=== PATIENT | female | born 1975 | race Caucasian/White ===

== ENCOUNTER 2020-06-25 11:43 | Emergency (ER) | payer SELFPAY ==
[2020-06-25 11:48] VITALS: BP 115/63
[2020-06-25] MEDS ORDERED: MORPHINE SULFATE 10 MG/ML INJ IM ONE (11:53)
--- NOTE | 2020-06-25 11:53 | ER Document Report ---
ED Medical Screen (RME) - General Chief Complaint: Pelvic Pain Stated Complaint: PELVIC PAIN Time Seen by Provider: 06/25/20 11:46 Mode of Arrival: Ambulatory Information source: Patient Notes: 44-year-old female presents to ED for complaint of right pelvic pain. She states she has had a history of a right ovarian torsion a month ago and had to have surgery. She does have a history of PCOS. She is also has a history of anemia and gastric bypass. States she does not use alcohol tobacco or drugs. I have greeted and performed a rapid initial assessment of this patient. A comprehensive ED assessment and evaluation of the patient, analysis of test results and completion of medical decision making process will be conducted by an additional ED providers. - Related Data Allergies/Adverse Reactions: acetaminophen [From Percocet] Allergy (Verified 06/25/20 11:50) Hives oxycodone [From Percocet] Allergy (Verified 06/25/20 11:50) Hives Physical Exam - Vital signs Vitals: Temp Pulse Resp BP Pulse Ox 98.2 F 86 12 115/63 98 06/25/20 11:47 06/25/20 11:47 06/25/20 11:47 06/25/20 11:47 06/25/20 11:47 Course - Vital Signs Vital signs: Temp Pulse Resp BP Pulse Ox 98.2 F 86 12 115/63 98 06/25/20 11:47 06/25/20 11:47 06/25/20 11:47 06/25/20 11:47 06/25/20 11:47
[2020-06-25] MEDS ORDERED: DIPHENHYDRAMINE HCL 50 MG/ML VIAL IM ONE (11:54)
[2020-06-25 12:31] LABS: ABSOLUTE EOSINOPHILS # (AUTO) 0.1 10^3/uL (0.0-0.6); ABSOLUTE MONOCYTES (AUTO) 0.2 10^3/uL (0.1-1.4); ABSOLUTE NEUT (AUTO) 2.4 10^3/uL (1.7-8.2); BASOPHILS % (AUTO) 1.1 % (0-2); EOSINOPHILS % (AUTO) 3.1 % (0-6); HEMATOCRIT 37.1 % (36.0-47.0); HEMOGLOBIN 12.2 g/dL (12.0-15.5); LYMPHOCYTES % (AUTO) 26.7 % (13-45); MEAN CORPUSCULAR HEMOGLOBIN 27.6 pg (27.0-33.4); MEAN CORPUSCULAR HGB CONC 32.9 g/dL (32.0-36.0); MEAN CORPUSCULAR VOLUME 84 fl (80-97); MONOCYTES % (AUTO) 5.6 % (3-13); PLATELET COUNT 334 10^3/uL (150-450); RED BLOOD COUNT 4.43 10^6/uL (3.72-5.28); RED CELL DISTRIBUTION WIDTH 14.7 % (11.5-14.0); SEGMENTED NEUTROPHILS % (AUTO) 63.5 % (42-78); TOTAL CELLS COUNTED % (AUTO) 100 %; WHITE BLOOD COUNT 3.8 10^3/uL (4.0-10.5)
[2020-06-25 12:33] LABS: APPEARANCE,URINE CLOUDY; BILIRUBIN,URINE NEGATIVE (NEGATIVE); COLOR,URINE YELLOW; GLUCOSE, URINE NEGATIVE (NEGATIVE); KETONES,URINE NEGATIVE (NEGATIVE); LEUKOCYTE ESTERASE,URINE LARGE (NEGATIVE); NITRITE,URINE NEGATIVE (NEGATIVE); PROTEIN,URINE NEGATIVE (NEGATIVE); URINE SPECIFIC GRAVITY 1.019
[2020-06-25] MEDS ORDERED: FENTANYL CITRATE INJ/PF 100 MCG/2 ML AMPUL IV ONE ×2 (12:33→14:10)
--- NOTE | 2020-06-25 12:39 | ER Document Report ---
ED GI/ - General Chief Complaint: Pelvic Pain Stated Complaint: PELVIC PAIN Time Seen by Provider: 06/25/20 11:46 Mode of Arrival: Ambulatory Notes: HPI: 44-year-old female who presents today awakening with severe pain to the right lower quadrant. She describes it as "sharp", constant, with no aggravating relieving factors. No radiation. Nausea and vomiting x1. No dysuria or diarrhea. Patient just had a right ovarian torsion diagnosed and treated in [place] 5 weeks ago. She states that they just "untwisted it" and did not perform an oophorectomy. She states that this is the same location and pain characteristics that she had at that time. ROS: See HPI All other review of systems reviewed and otherwise negative Reviewed vital signs and nursing note as charted by RN. PHYSICAL EXAM: CONSTITUTIONAL: Alert and oriented and responds appropriately to questions. Patient does appear to be in distress HEAD: Normocephalic; atraumatic NECK: Supple without meningismus; non-tender; no cervical lymphadenopathy, no masses CARD: Regular rate and rhythm; no murmurs; symmetric distal pulses RESP: Normal chest excursion without splinting or tachypnea; breath sounds clear and equal bilaterally ABD/GI: Normal bowel sounds; old laparoscopy scars present; non-distended; soft, tender to palpation to the right lower quadrant with no rebound or guarding. No palpable masses BACK: The back appears normal and is non-tender to palpation EXT: Normal ROM in all joints; non-tender to palpation; no edema SKIN: No acute lesions noted NEURO: CN 2-12 intact; 5/5 bilateral upper and lower extremity strength with sensation intact to light touch PSYCH: The patient's mood and manner are appropriate. Grooming and personal hygiene are appropriate. - Related Data Allergies/Adverse Reactions: acetaminophen [From Percocet] Allergy (Verified 06/25/20 11:50) Hives oxycodone [From Percocet] Allergy (Verified 06/25/20 11:50) Hives Past Medical History - General Information source: Patient - Social History Smoking Status: Never Smoker Family History: Reviewed & Not Pertinent Physical Exam - Vital signs Vitals: Temp Pulse Resp BP Pulse Ox 98.2 F 86 12 115/63 98 06/25/20 11:47 06/25/20 11:47 06/25/20 11:47 06/25/20 11:47 06/25/20 11:47 Course - Re-evaluation Re-evalutation: 06/25/20 12:38 Given the above history and physical with the concern of possibly torsion, I did call down to radiology to help expedite the ultrasound. They state that they currently only have 1 tech working at this time and do not know the timeframe to receive the stat ultrasound. I then did call the [employer] on-call Dr. Calles and have explained the situation. She states she will most likely take a bedside ultrasound to evaluate. I have provided fentanyl. Awaiting urine test. Patient denies missing any menstrual periods. She is 44 years of age. The differential does include possibly acute appendicitis or other intra- abdominal pathology, but given the recent surgery and history I am concerned mostly about an ovarian torsion at this time. 06/25/20 13:55 [employer] was at bedside. Ultrasound was at bedside. They both performed a transvaginal ultrasound together. They could not find the ovaries. They have asked perform a CT scan and will reevaluate. Patient's pain is much more controlled. 06/25/20 15:[address] scan as recorded. I called and spoke again to the INSPECT[employer] who is very polite. She states she will come down to see the patient again. Patient obviously has had recent laparoscopic surgery given the scars. History of ovarian torsion. Specially cystectomy as well now speaking further with the patient. Given his history not able to visualize the ovaries, I believe INSPECTOR [employer] will admit the patient for possible serial exams and possible repeat l aparoscopy. - Vital Signs Vital signs: Temp Pulse Resp BP Pulse Ox 98.2 F 86 12 115/63 98 06/25/20 11:47 06/25/20 11:47 06/25/20 11:47 06/25/20 11:47 06/25/20 11:47 - Laboratory Result Diagrams: 06/25/20 12:00 06/25/20 12:00 Laboratory results interpreted by me: 06/25/20 06/25/20 06/25/20 12:00 12:00 12:00 WBC 3.8 L RDW 14.7 H Carbon Dioxide 31 H Urine Urobilinogen 2.0 H Ur Leukocyte Esterase LARGE H Discharge - Discharge Clinical Impression: RLQ abdominal pain Condition: Fair Disposition: ADMITTED OBSERVATION Admitting Provider: Masha Calles Unit Admitted: Labor and Delivery
[2020-06-25 12:44] LABS: ALBUMIN 4.6 g/dL (3.5-5.0); ALKALINE PHOSPHATASE 94 U/L (38-126); ANION GAP 6 (5-19); ASPARTATE AMINO TRANSFERASE 23 U/L (14-36); BILIRUBIN,DIRECT 0.3 mg/dL (0.0-0.4); BILIRUBIN,TOTAL 0.6 mg/dL (0.2-1.3); BLOOD UREA NITROGEN 10 mg/dL (7-20); CALCIUM 9.7 mg/dL (8.4-10.2); CARBON DIOXIDE 31 mmol/L (22-30); CHLORIDE 104 mmol/L (98-107); GLUCOSE 95 mg/dL (75-110); POTASSIUM 4.4 mmol/L (3.6-5.0)
[2020-06-25] MEDS ORDERED: MORPHINE SULFATE 10 MG/ML INJ IV ONE ×2 (12:48→14:15)
[2020-06-25] MEDS ORDERED: DIPHENHYDRAMINE HCL 50 MG/ML VIAL IV ONE ×2 (13:14→14:42)
--- NOTE | 2020-06-25 14:02 | RADIOLOGY REPORT (SQ) ---
EXAM DESCRIPTION: U/S NON OB PEL TV W/DOPPLER IMAGES COMPLETED DATE/TIME: 06/25/2020 1:46 pm REASON FOR STUDY: right pelvic pain hx torsion month ago COMPARISON: None. TECHNIQUE: Dynamic and static grayscale images acquired of the pelvis via transabdominal and transva ginal approach and recorded on PACS. Additional selected color Doppler and spectral images recorded. LIMITATIONS: None. FINDINGS: UTERUS: Contour normal. No mass. ENDOMETRIAL STRIPE: No focal or generalized thickening. No masses. CERVIX: No nabothian cysts. RIGHT OVARY AND DOPPLER: Ovary not visualized secondary to overlying bowel gas. LEFT OVARY AND DOPPLER: Ovary not visualized secondary to overlying bowel gas. FREE FLUID: None noted. OTHER: No other significant finding. MEASUREMENTS: UTERUS: 4.8 x 2.4 x 3.3 cm ENDOMETRIAL STRIPE: 5 mm IMPRESSION: Unremarkable sonographic appearance of the uterus. Nonvisualization of the ovaries secondary to overlying bowel gas. TECHNICAL DOCUMENTATION: JOB ID: [id number] 2010 [employer]- All Rights Reserved Rev-02/20 Reading location - IP/workstation name: [email or web address]
--- NOTE | 2020-06-25 15:09 | RADIOLOGY REPORT (SQ) ---
EXAM DESCRIPTION: CT ABD/PELVIS WITH IV ONLY IMAGES COMPLETED DATE/TIME: 06/25/2020 2:33 pm REASON FOR STUDY: 9; RLQ pain; history of ovarian torsion COMPARISON: Pelvic ultrasound 06/25/2020 TECHNIQUE: CT scan of the abdomen and pelvis performed using helical scanning technique with dynamic intravenous contrast injection. No oral contrast. Images reviewed with lung, soft tissue, and bone windows. Reconstructed coronal and sagittal MPR images reviewed. Delayed images for evaluation of the urinary system also acquired. All images stored on PACS. All CT scanners at this facility use dose modulation, iterative reconstruction, and/or weight based d osing when appropriate to reduce radiation dose to as low as reasonably achievable (ALARA). [facility]: Dose Right [facility]: CareDose [facility]: Dose Right [facility]: Teradose 4D [facility]: Carnet de Mode CONTRAST TYPE AND DOSE: contrast/concentration: Isovue 350.00 mmol/ml; Total Contrast Delivered: 35. 6 ml; Total Saline Delivered: 54.3 ml RENAL FUNCTION: BUN 10; creatinine 0.70 RADIATION DOSE: CT Rad equipment meets quality standard of care and radiation dose reduction techniq ues were employed. CTDIvol: 8.3 - 11.5 mGy. DLP: 1003 mGy-cm.. LIMITATIONS: None. FINDINGS: LOWER CHEST: No significant findings. No nodules or infiltrates. LIVER: Normal size. No masses. No dilated ducts. SPLEEN: Normal size. No focal lesions. PANCREAS: No masses. No significant calcifications. No adjacent inflammation or peripancreatic fluid collections. Pancreatic duct not dilated. GALLBLADDER: Surgically absent. The common bile duct is mildly prominent, a finding which can be see n in post cholecystectomy patients. ADRENAL GLANDS: No significant masses or asymmetry. RIGHT KIDNEY AND URETER: No solid masses. No significant calcification. No hydronephrosis or hydroure ter. LEFT KIDNEY AND URETER: No solid masses. No significant calcification. No hydronephrosis or hydrouret er. AORTA AND VESSELS: No aneurysm. No dissection. Renal arteries, SMA, celiac without stenosis. RETROPERITONEUM: No retroperitoneal adenopathy, hemorrhage or masses. BOWEL AND PERITONEAL CAVITY: Postsurgical changes from gastric bypass procedure are noted. No dilate d loops of small or large bowel to suggest bowel obstruction. No areas of abnormal bowel wall thicke stu. APPENDIX: Surgically absent. PELVIS: No mass or free fluid. The uterus is grossly unremarkable. The ovaries are not visualized. ABDOMINAL WALL: No masses. No hernias. BONES: No significant or acute findings. OTHER: No other significant finding. IMPRESSION: No acute inflammatory changes in the abdomen or pelvis. Specifically, the ovaries are n ot visualized, though no large adnexal masses are seen. TECHNICAL DOCUMENTATION: JOB ID: [id number] Quality ID # [id number]: Final reports with documentation of one or more dose reduction techniques (e.g., Au tomated exposure control, adjustment of the mA and/or kV according to patient size, use of iterative reconstruction technique) 2010 [employer]- All Rights Reserved Reading location - IP/workstation name: [email or web address]
--- NOTE | 2020-06-25 16:13 | PDOC CONSULTATION ---
Consultation Consult Date: 06/25/20 Provider Consulted: SHANTE IZAGUIRRE History of Present Illness Admission Date/PCP: Consult 06/25/20 Patient complains of: RLQ pain History of Present Illness: MYRNA MULLEN is a 44 year old female HPI: 44-year-old who presents to ED today after awakening with severe pain to the right lower quadrant. She describes it as "sharp", constant, with no aggravating relieving factors. No radiation. Has nausea and vomiting x1. No dysuria, hematuria, constipation or diarrhea. SHe has regular irregular cycles. Hx BTL after last . Patient just had a right ovarian torsion diagnosed and treated in [place] 5 weeks ago. She states that they just "untwisted it" and did not take the ovary but did remove a cyst on the right. She states that this is the same location and pain harshad cteristics that she had at that time. Past Medical History LMP: Irregular Social History Smoking Status: Never Smoker Family History Parental Family History Reviewed: Yes Children Family History Reviewed: Yes Sibling(s) Family History Reviewed.: Yes Medication/Allergy Allergies/Adverse Reactions: acetaminophen [From Percocet] Allergy (Verified 06/25/20 11:50) Hives oxycodone [From Percocet] Allergy (Verified 06/25/20 11:50) Hives Review of Systems Constitutional: ABSENT: chills, fever(s), headache(s), weight gain, weight loss Cardiovascular: ABSENT: chest pain, dyspnea on exertion, edema, orthropnea, palpitations Respiratory: ABSENT: cough, hemoptysis Gastrointestinal: PRESENT: as per HPI, abdominal pain - Pain on palpation to RLQ but no rebound or guarding. Genitourinary: ABSENT: dysuria, hematuria Integumentary: ABSENT: rash, wounds Psychiatric: ABSENT: anxiety, depression, homidical ideation, suicidal ideation Physical Exam - Physical Exam Vital Signs: Temp Pulse Resp BP Pulse Ox 98.2 F 86 12 115/63 98 06/25/20 11:47 06/25/20 11:47 06/25/20 11:47 06/25/20 11:47 06/25/20 11:47 Intake & Output 06/24/20 06/25/20 06/26/20 06:59 06:59 06:59 Weight 80.1 kg Additional comments: Deferred meat carver exam now b/c US is waing on patient Result Laboratory Results: 06/25/20 12:00 06/25/20 06/25/20 12:00 12:00 WBC 3.8 L RBC 4.43 Hgb 12.2 Hct 37.1 MCV 84 MCH 27.6 MCHC 32.9 RDW 14.7 H Plt Count 334 Seg Neutrophils % 63.5 Urine Color YELLOW Urine Appearance CLOUDY Urine pH 6.0 Ur Specific [place] 1.019 Urine Protein NEGATIVE Urine Glucose (UA) NEGATIVE Urine Ketones NEGATIVE Urine Blood NEGATIVE Urine Nitrite NEGATIVE Ur Leukocyte Esterase LARGE H Urine WBC (Auto) 51 Urine RBC (Auto) 4 Assessment & Plan - Diagnosis (1) RLQ abdominal pain Is this a current diagnosis for this admission?: Yes - Time Critical Time spent with patient: 25-34 minutes Anticipated Discharge Disposition: Home, Self Care Anticipated Discharge Timeframe: see note . patient left - Plan Summary Plan Summary: 44 yo with RLQ pain, hx of appendectomy and hx of Right ovarian torsion surgery to " untwist " and right ovarian cyst removal -VSS -exam as above. No rebound or guarding -US pending -UA iwth WBC, leukest. Would send culture. US pelvis showed normal appearing uterus with thin EMS. Ovaries not visualized due to overlying bowels. I was in room for US with cdc associate and assisted her on this exam. No adnexal masses seen. US trans abdominal; and vaginal done. CT scan then done iwth contrast. Bowels with gas and stool but otherwise negative. Ovaries not seen but No adnexal masses or stranding seen. Pt is s/p appendectomy. No bowel obstruction noted and normal changes for Gastric bypass were noted. I returned to ED after CT completed to see patient and do pelvic exam portion of the exam that I was unable to do previously because she was obtaining imaging. Patient room empty and her angiocath with saline lock / tape was laying in her bed. DIscussed with her nurse and she did not removed. SHe stated: "I just gave her more IV Pain medication" . She check restrooms and patient not found. Staff attempted to call the phone # patient gave us on check in and it was not a working #. Patient assumed to have left ED against medical advice?? Discussed with Dr. Fam.
== END 2020-06-25 16:43 | disposition left against medical advice (07) ==
LOC: ER 11:43
DX: R10.31 Right lower quadrant pain (principal); R11.2 Nausea with vomiting, unspecified; Z98.84 Bariatric surgery status; Z88.6 Allergy status to analgesic agent
CPT/HCPCS: 99281; 96374; 36415; 87086; 84702; 85025; 80053; 81001; 76830; 93976; 74177; J1200; J2270